=== PATIENT | male | born 1980 | race Caucasian/White ===

== ENCOUNTER 2017-04-06 15:24 | Emergency (ER) | payer OTHER ==
[~2017-04-06] VITALS: Ht 175.3 cm; Wt 98.0 kg
[2017-04-06 16:01] VITALS: BP 130/83
== END 2017-04-06 17:26 | disposition left against medical advice (07) ==
LOC: ED 15:24
DX: Z53.21 Procedure and treatment not carried out due to patient leaving prior to being seen by health care provider (principal)